=== PATIENT | female | born 1990 | race Caucasian/White ===

== ENCOUNTER 2023-07-09 05:04 | Day surgery (SDC) | payer OTHER, SELFPAY ==
[2023-07-09] VITALS (30 sets, daily range): BP systolic 87–127; BP diastolic 45–77; PULSE 49–98; RESP 14–19; TEMP 36.4–37.1; O2SAT 95–100; BMI 24.2
--- NOTE | 2023-07-09 05:22 | CRLHL7_ITS ---
For Patients: As a result of the Century Cures Act, medical imaging exams and procedure reports are released immediately into your electronic medical record. You may view this report before your referring provider. If you have questions, please contact your health care provider. INDICATION: Heavy vaginal bleeding, approximately 8 weeks , history of ectopic . TECHNIQUE: Ultrasound OB pelvis transvaginal. Real-time young-scale imaging of the pelvis was performed. COMPARISON: None. FINDINGS: Provided last menstrual period: May 2023 Normal uterine size and position. The endometrium measures 1 cm in double thickness. No endometrial fluid. No intrauterine gestational sac. There is a slightly heterogeneous hypoechoic round subserosal myometrial lesion at the fundus that measures 1.5 x 1.3 x 1.8 cm. Appearance is highly suggestive of a uterine fibroid. The left ovary measures 2.6 x 1.3 x 1.6 cm the right ovary measures 2.5 x 1.5 x 1.8 cm. No ovarian cyst or mass. No paraovarian cyst or mass. No pelvic free fluid. IMPRESSION: Small lesion at the uterine fundus appears most consistent with a leiomyoma. No findings of interstitial ectopic or other ectopic . No findings of intrauterine . Correlate with the patient`s beta HCG. Dictated by Rebecca Dooley MD @ 07/09/2023 7:34:56 AM (Electronically Signed)
[2023-07-09 05:31] LABS: Basophils Absolute Auto 0.03 K/uL (0.00-0.30); Basophils Percent Auto 0.3 % (0.0-3.0); Eosinophils Absolute Auto 0.12 K/uL (0.00-0.50); Eosinophils Percent Auto 1.4 % (0.0-7.0); Hematocrit 37.2 % (33.0-51.0); Hemoglobin* 12.5 gm/dL (12.0-16.0); Immature Granulocytes Abs Auto 0.01 K/uL (0.00-0.30); Immature Granulocytes Pct Auto 0.1 %; Lymphocytes Absolute Auto 2.63 K/uL (0.90-2.90); Mean Corpuscular HGB Conc 34 gm/dL (32-36); Mean Corpuscular Hemoglobin 29 pg (26-34); Mean Corpuscular Volume 85 fL (80-100); Monocytes Percent Auto 5.6 % (0.0-11.0); Neutrophils Absolute Auto 5.49 K/uL (1.7-7.0); Neutrophils Percent Auto 62.6 % (42.0-72.0); Platelet Count* 292 K/uL (140-440); RDW Coefficient of Variation % 12.1 % (11.5-15.5); Red Blood Count 4.37 m/uL (4.00-5.20); White Blood Count* 8.77 K/uL (4.50-11.00)
[2023-07-09 05:32] LABS: Slide Review Reflex No
--- NOTE | 2023-07-09 05:42 | ED.PREGNANCY ---
HPI - General Date Seen: 07/09/23 <Faustino Bob - Last Filed: 07/11/23 08:28> Chief complaint: Vaginal Bleeding <Faustino Bob - Last Filed: 07/11/23 08:28> Stated complaint: severe vaginal bleeding, 8 weeks <Faustino Bob - Last Filed: 07/11/23 08:28> Time Seen by Provider: 07/09/23 05:22 <Faustino Bob - Last Filed: 07/11/23 08:28> Source: patient <Faustino Bob - Last Filed: 07/11/23 08:28> Mode of arrival: ambulatory <Faustino Bob - Last Filed: 07/11/23 08:28> Limitations: no limitations <Faustino P Paulino Last Filed: 07/11/23 08:28> History of Present Illness HPI Narrative: Patient is a 33-year-old female A1 presenting to the emergency department for vaginal bleeding. She states she took a test that was positive based on the last menstrual. She is 8 weeks along. She is supposed to have her 1st ultrasound today. She noticed this morning at 02:30 she was having some mild bleeding. I he was guarding worsening she says since 04:30 she has had a large amount of bleeding and has gone through 3 pads. She does states she has had ectopic in the past. She denies lightheadedness or dizziness. Denies fevers, chills, headache, vision changes. She states last time with her ectopic all the bleeding was internal and she had a severe amount of abdominal pain. <Faustino Bob - Last Filed: 07/11/23 08:28> Related Data Home medications: Home Medications Medication Instructions Recorded Confirmed No Known Home Medications 12/19/22 12/19/22 <Faustino Bob - Last Filed: 07/11/23 08:28> Allergies/Adverse reactions: Allergies Allergy/AdvReac Type Severity Reaction Status Date / Time Sulfa (Sulfonamide Allergy Unknown Unknown Verified 12/19/22 08:46 Antibiotics) <Faustino Bob - Last Filed: 07/11/23 08:28> Review of Systems Status of ROS: Reports: 10 or more systems reviewed and unremarkable except as noted in History and below <Faustino Bob DO - Last Filed: 07/11/23 08:28> [facility] Medical History: Medical History History of hyperemesis gravidarum ?Z87.59 - Personal history of other complications of , childbirth and the puerperium (ICD-10) History of vaginal delivery (10/04/18) History of ectopic (11/2019) ?Z87.59 - Personal history of other complications of , childbirth and the puerperium (ICD-10) <Faustino Bob DO - Last Filed: 07/11/23 08:28> Surgical History: Surgical History History of laparoscopy (11/2019) ?Z98.890 - Other specified postprocedural states (ICD-10) <Faustino Bob DO - Last Filed: 07/11/23 08:28> Family History: Family History Mother Scoliosis Father High blood pressure <Faustino Bob DO - Last Filed: 07/11/23 08:28> Social History: Social History What is your current living situation?: I presently have a place to live Problems where you live: no known problems In the past 12 months, utilities in danger of being shut off: no In the past 12 mos, have been you worried that your food would run out before you had money to buy more?: never true In the past 12 mos, the food you bought just didn't last and you didn't have money to buy more?: never true Smoking Status: Never smoker How often do you have a drink containing alcohol: never AUDIT-C Alcohol total score: 0 Non-prescribed substance use: denies use How often does anyone, including family, friends and others, physically hurt you: How often does anyone, including family, friends and others, insult or talk down to you: How often does anyone, including family, friends and others, threaten you with harm: How often does anyone, including family, friends and others, scream or curse at you: Little interest or pleasure in doing things: not at all Feeling down, depressed, or hopeless: not at all <Faustino Bob DO - Last Filed: 07/11/23 08:28> Exam Narrative: Exam Narrative: Const: Well-nourished, Well-developed, in mild distress Eyes: PERRL, no conjunctival injection, and symmetrical lids HENT: Atraumatic external nose and ears. Moist mucous membranes. Neck: Symmetric, trachea midline, No thyromegaly. CVS: RRR, No murmurs or gallops. Peripheral pulses 2+ and equal in all extremities RESP: Unlabored respiratory effort. Clear to auscultation bilaterally. GI: Nontender/Nondistended, No rebound or guarding. : Pelvic exam done showing a large amount of blood in the vaginal vault. Unable to visualize cervix due to the bleeding. Large clot seen in the vaginal vault MSK:Extremities w/o deformity, Normal Active ROM Skin: Warm, Dry. No rashes or lesions. Neuro: Normal Muscle tone, No focal neurological deficits. Psych: Awake, Alert, & Oriented x3. Appropriate mood and affect. <Faustino Bob DO - Last Filed: 07/11/23 08:28> Const: Vital Signs, click to edit/add: Vital Signs - 24 hr 07/09/23 05:15 07/09/23 05:46 07/09/23 05:51 Temperature 98.3 F Pulse Rate 49 L Pulse Rate [Pulse Oximeter] 54 L Respiratory Rate 18 Blood Pressure Blood Pressure [Ri ght Upper Arm] 95/53 L 96/64 Pulse Oximetry 100 95 Oxygen Delivery Me thod Room Air Room Air 07/09/23 05:58 07/09/23 06:00 07/09/23 06:15 Temperature Pulse Rate 59 L 60 62 Pulse Rate [Pulse Oximeter] Respiratory Rate Blood Pressure 98/57 L Blood Pressure [Ri ght Upper Arm] Pulse Oximetry 100 97 99 Oxygen Delivery Me thod 07/09/23 06:30 07/09/23 06:38 07/09/23 06:45 Temperature Pulse Rate 56 L Pulse Rate [Pulse Oximeter] Respiratory Rate Blood Pressure 100/57 L 87/49 L Blood Pressure [Ri ght Upper Arm] Pulse Oximetry 97 Oxygen Delivery Me thod 07/09/23 07:10 07/09/23 07:16 07/09/23 07:23 Temperature Pulse Rate 59 L 61 Pulse Rate [Pulse Oximeter] Respiratory Rate 16 Blood Pressure 107/76 102/45 L Blood Pressure [Ri ght Upper Arm] Pulse Oximetry 100 100 Oxygen Delivery Me thod 07/09/23 07:30 07/09/23 08:06 07/09/23 08:08 Temperature Pulse Rate 63 67 69 Pulse Rate [Pulse Oximeter] Respiratory Rate 16 Blood Pressure 106/61 Blood Pressure [Ri ght Upper Arm] Pulse Oximetry 100 100 97 Oxygen Delivery Me thod 07/09/23 08:09 07/09/23 08:15 07/09/23 08:30 Temperature Pulse Rate 66 71 79 Pulse Rate [Pulse Oximeter] Respiratory Rate Blood Pressure Blood Pressure [Ri ght Upper Arm] Pulse Oximetry 100 100 99 Oxygen Delivery Me thod 07/09/23 08:31 Temperature Pulse Rate 87 Pulse Rate [Pulse Oximeter] Respiratory Rate 16 Blood Pressure 120/77 Blood Pressure [Ri ght Upper Arm] Pulse Oximetry 100 Oxygen Delivery Me thod <Faustino Bob, DO - Last Filed: 07/11/23 08:28> Vital Signs, click to edit/add: Vital Signs - 24 hr 07/09/23 05:15 07/09/23 05:46 07/09/23 05:51 Temperature 98.3 F Pulse Rate 49 L Pulse Rate [Pulse Oximeter] 54 L Respiratory Rate 18 Blood Pressure Blood Pressure [Ri ght Upper Arm] 95/53 L 96/64 Pulse Oximetry 100 95 Oxygen Delivery Me thod Room Air Room Air 07/09/23 05:58 07/09/23 06:00 07/09/23 06:15 Temperature Pulse Rate 59 L 60 62 Pulse Rate [Pulse Oximeter] Respiratory Rate Blood Pressure 98/57 L Blood Pressure [Ri ght Upper Arm] Pulse Oximetry 100 97 99 Oxygen Delivery Me thod 07/09/23 06:30 07/09/23 06:38 07/09/23 06:45 Temperature Pulse Rate 56 L Pulse Rate [Pulse Oximeter] Respiratory Rate Blood Pressure 100/57 L 87/49 L Blood Pressure [Ri ght Upper Arm] Pulse Oximetry 97 Oxygen Delivery Me thod 07/09/23 07:10 07/09/23 07:16 07/09/23 07:23 Temperature Pulse Rate 59 L 61 Pulse Rate [Pulse Oximeter] Respiratory Rate 16 Blood Pressure 107/76 102/45 L Blood Pressure [Ri ght Upper Arm] Pulse Oximetry 100 100 Oxygen Delivery Me thod 07/09/23 07:30 07/09/23 08:06 07/09/23 08:08 Temperature Pulse Rate 63 67 69 Pulse Rate [Pulse Oximeter] Respiratory Rate 16 Blood Pressure 106/61 Blood Pressure [Ri ght Upper Arm] Pulse Oximetry 100 100 97 Oxygen Delivery Me thod 07/09/23 08:09 07/09/23 08:15 07/09/23 08:30 Temperature Pulse Rate 66 71 79 Pulse Rate [Pulse Oximeter] Respiratory Rate Blood Pressure Blood Pressure [Ri ght Upper Arm] Pulse Oximetry 100 100 99 Oxygen Delivery Me thod 07/09/23 08:31 Temperature Pulse Rate 87 Pulse Rate [Pulse Oximeter] Respiratory Rate 16 Blood Pressure 120/77 Blood Pressure [Ri ght Upper Arm] Pulse Oximetry 100 Oxygen Delivery Me thod <Lynn Avalos MD - Last Filed: 07/09/23 09:09> Course Course ED Course: Patient was signed out to me by Dr. Bob, please see his note for full details. Repeat hemoglobin was stable, Ob did come to evaluate the patient and feels overall it would be best to take her to the operating room. . Hemodynamically she is improved, last blood pressure 120/77, pulse of 87. To OR with OB for D&C. <Lynn Avalos MD - Last Filed: 07/09/23 09:09> Vital Signs Vital signs: Initial Vital Signs Temperature 98.3 F 07/09/23 05:15 Temperature Source Temporal Artery Scan 07/09/23 05:15 Pulse Rate 54 L 07/09/23 05:15 Respiratory Rate 18 07/09/23 05:15 Blood Pressure 95/53 L 07/09/23 05:15 Blood Pressure Mean 67 L 07/09/23 05:15 Blood Pressure Position Supine 07/09/23 05:15 Oxygen Delivery Method Room Air 07/09/23 05:15 Vital Signs Temperature 98.3 F 07/09/23 05:15 Pulse Rate 54 L 07/09/23 05:15 Respiratory Rate 18 07/09/23 05:15 Blood Pressure 95/53 L 07/09/23 05:15 Oxygen Delivery Method Room Air 07/09/23 05:15 Temperature 98.5 F 07/09/23 09:59 Pulse Rate 65 07/09/23 10:45 Respiratory Rate 16 07/09/23 10:45 Blood Pressure 104/77 07/09/23 10:45 Pulse Oximetry 99 07/09/23 10:45 Oxygen Delivery Method Room Air 07/09/23 10:45 <Faustino Bob DO - Last Filed: 07/11/23 08:28> Initial Vital Signs Temperature 98.3 F 07/09/23 05:15 Temperature Source Temporal Artery Scan 07/09/23 05:15 Pulse Rate 54 L 07/09/23 05:15 Respiratory Rate 18 07/09/23 05:15 Blood Pressure 95/53 L 07/09/23 05:15 Blood Pressure Mean 67 L 07/09/23 05:15 Blood Pressure Position Supine 07/09/23 05:15 Oxygen Delivery Method Room Air 07/09/23 05:15 Vital Signs Temperature 98.3 F 07/09/23 05:15 Pulse Rate 54 L 07/09/23 05:15 Respiratory Rate 18 07/09/23 05:15 Blood Pressure 95/53 L 07/09/23 05:15 Oxygen Delivery Method Room Air 07/09/23 05:15 Temperature 98.5 F 07/09/23 09:59 Pulse Rate 65 07/09/23 10:45 Respiratory Rate 16 07/09/23 10:45 Blood Pressure 104/77 07/09/23 10:45 Pulse Oximetry 99 07/09/23 10:45 Oxygen Delivery Method Room Air 07/09/23 10:45 <Lynn Avalos MD - Last Filed: 07/09/23 09:09> Medications Administered Medications: Discontinued Medications Generic Name Dose Route Start Last Admin Trade Name Freq PRN Reason Stop Dose Admin Bupivacaine HCl 30 ml 07/09/23 09:28 07/09/23 09:11 Bupivacaine 0.25% 30 Ml INJECTION 07/09/23 09:29 10 ml ONCE ONE Administration Sodium Chloride 1,000 mls @ 1,000 mls/hr 07/09/23 07:15 07/09/23 07:38 0.9 % Sodium Chloride 1000 Ml IV 07/09/23 08:14 Infused .Q1H OLIVE Infusion Sodium Chloride 1,000 mls @ 1,000 mls/hr 07/09/23 07:45 07/09/23 08:14 0.9 % Sodium Chloride 1000 Ml IV 07/09/23 08:44 Infused .Q1H OLIVE Infusion Lactated Ringer's 1,000 mls @ 125 mls/hr 07/09/23 09:14 07/09/23 10:58 Lactated Ringers 500 Ml IV Infused .Q8H OLIVE Infusion Lidocaine HCl 20 ml 07/09/23 09:28 07/09/23 09:11 Lidocaine 1% Mdv INJECTION 07/09/23 09:29 10 ml ONCE ONE Administration <Faustino Bob DO - Last Filed: 07/11/23 08:28> Discontinued Medications Generic Name Dose Route Start Last Admin Trade Name Freq PRN Reason Stop Dose Admin Bupivacaine HCl 30 ml 07/09/23 09:28 07/09/23 09:11 Bupivacaine 0.25% 30 Ml INJECTION 07/09/23 09:29 10 ml ONCE ONE Administration Sodium Chloride 1,000 mls @ 1,000 mls/hr 07/09/23 07:15 07/09/23 07:38 0.9 % Sodium Chloride 1000 Ml IV 07/09/23 08:14 Infused .Q1H OLIVE Infusion Sodium Chloride 1,000 mls @ 1,000 mls/hr 07/09/23 07:45 07/09/23 08:14 0.9 % Sodium Chloride 1000 Ml IV 07/09/23 08:44 Infused .Q1H OLIVE Infusion Lactated Ringer's 1,000 mls @ 125 mls/hr 07/09/23 09:14 07/09/23 10:58 Lactated Ringers 500 Ml IV Infused .Q8H OLIVE Infusion Lidocaine HCl 20 ml 07/09/23 09:28 07/09/23 09:11 Lidocaine 1% Mdv INJECTION 07/09/23 09:29 10 ml ONCE ONE Administration <Lynn Avalos MD - Last Filed: 07/09/23 09:09> MDM - OB/Uterine Contractions MDM Narrative Medical decision making narrative: Patient is a 33-year-old female presenting for vaginal bleeding. Her blood pressure is relatively soft right now and she was given a L of fluids. I did do a pelvic exam but cannot get a clear view due to all the blood in the vault. At this point time concern for a miscarriage but more specifically and concern for an ectopic . Ultrasound was ordered to better evaluate this. She is not needing any pain medicine at this time. CBC, BMP, hCG quant, type and screen all ordered. Lab work returned showing no concerning findings. HCG quantitative was 5527. She is A positive. Ultrasound showed a large amount of blood again and patient does seem to be bleeding more. Preliminary read shows an internal fibroid and no signs of an into the ureter and or extra uterine . Patient has received 1 L fluid so far and was see by 2 L. of note while there were initially bringing her to ultrasound the patient has syncopal episode while sitting in a chair. Ultrasound was then done at bedside. I spoke to the on-call OB provider Dr. Peterson, who will come to evaluate her in the emergency department. Patient signed out to Dr. Avalos pending OB recommendations <Faustino Bob DO - Last Filed: 07/11/23 08:28> Lab Data Labs: Lab Results 07/09/23 07/09/23 Range/Units 05:25 08:10 WBC 8.77 12.23 H (4.50-11.00) K/uL RBC 4.37 4.60 (4.00-5.20) m/uL Hgb 12.5 13.1 (12.0-16.0) gm/dL Hct 37.2 39.9 (33.0-51.0) % MCV 85 87 (80-100) fL MCH 29 29 (26-34) pg MCHC 34 33 (32-36) gm/dL RDW Coeff of Arely 12.1 12.3 (11.5-15.5) % Plt Count 292 269 (140-440) K/uL Neut % (Auto) 62.6 81.7 H (42.0-72.0) % Lymph % (Auto) 30.0 13.7 L (20-44) % Bradford % (Auto) 5.6 3.8 (0.0-11.0) % Eos % (Auto) 1.4 0.5 (0.0-7.0) % Baso % (Auto) 0.3 0.1 (0.0-3.0) % Neut # (Auto) 5.49 10.00 H (1.7-7.0) K/uL Lymph # (Auto) 2.63 1.70 (0.90-2.90) K/uL Bradford # (Auto) 0.50 0.50 (0.00-0.90) K/UL Eos # (Auto) 0.12 0.10 (0.00-0.50) K/uL Baso # (Auto) 0.03 0.00 (0.00-0.30) K/uL Abs Immat Gran (auto) 0.01 0.00 (0.00-0.30) K/uL Imm/Tot Granulo (auto) 0.1 0.2 % Sodium 137 (135-149) mmol/L Potassium 3.4 L (3.6-5.1) mmol/L Chloride 106 (96-114) mmol/L Carbon Dioxide 21 (20-32) mmol/L Anion Gap 10 (7-15) mEq/L BUN 11 (5-24) mg/dL Creatinine 0.7 (0.5-1.5) mg/dL Estimated Creat Clear 106.01 Estimated GFR 116 ml/min Glucose 120 H (60-115) mg/dL Calcium 9.0 (8.4-10.6) mg/dL HCG, Quant 5527.00 mIU/mL Blood Type A Positive Antibody Screen NEGATIVE <Faustino Bob, DO - Last Filed: 07/11/23 08:28> Lab Results 07/09/23 07/09/23 Range/Units 05:25 08:10 WBC 8.77 12.23 H (4.50-11.00) K/uL RBC 4.37 4.60 (4.00-5.20) m/uL Hgb 12.5 13.1 (12.0-16.0) gm/dL Hct 37.2 39.9 (33.0-51.0) % MCV 85 87 (80-100) fL MCH 29 29 (26-34) pg MCHC 34 33 (32-36) gm/dL RDW Coeff of Arely 12.1 12.3 (11.5-15.5) % Plt Count 292 269 (140-440) K/uL Neut % (Auto) 62.6 81.7 H (42.0-72.0) % Lymph % (Auto) 30.0 13.7 L (20-44) % Bradford % (Auto) 5.6 3.8 (0.0-11.0) % Eos % (Auto) 1.4 0.5 (0.0-7.0) % Baso % (Auto) 0.3 0.1 (0.0-3.0) % Neut # (Auto) 5.49 10.00 H (1.7-7.0) K/uL Lymph # (Auto) 2.63 1.70 (0.90-2.90) K/uL Bradford # (Auto) 0.50 0.50 (0.00-0.90) K/UL Eos # (Auto) 0.12 0.10 (0.00-0.50) K/uL Baso # (Auto) 0.03 0.00 (0.00-0.30) K/uL Abs Immat Gran (auto) 0.01 0.00 (0.00-0.30) K/uL Imm/Tot Granulo (auto) 0.1 0.2 % Sodium 137 (135-149) mmol/L Potassium 3.4 L (3.6-5.1) mmol/L Chloride 106 (96-114) mmol/L Carbon Dioxide 21 (20-32) mmol/L Anion Gap 10 (7-15) mEq/L BUN 11 (5-24) mg/dL Creatinine 0.7 (0.5-1.5) mg/dL Estimated Creat Clear 106.01 Estimated GFR 116 ml/min Glucose 120 H (60-115) mg/dL Calcium 9.0 (8.4-10.6) mg/dL HCG, Quant 5527.00 mIU/mL Blood Type A Positive Antibody Screen NEGATIVE <Lynn Avalos MD - Last Filed: 07/09/23 09:09> Imaging Data Ob transvaginal ultrasound: Radiologist's impression: Small lesion at the uterine fundus appears most consistent with a leiomyoma. No findings of interstitial ectopic or other ectopic . No findings of intrauterine . Correlate with the patient`s beta HCG. Dictated by Rebecca Dooley MD @ 07/09/2023 7:34:56 AM <Faustino Bob DO - Last Filed: 07/11/23 08:28> Discharge Plan Discharge Clinical Impression: Incomplete , Vaginal bleeding <Faustino Bob DO - Last Filed: 07/11/23 08:28> Patient Disposition: XFER to OR <Faustino Bob DO - Last Filed: 07/11/23 08:28> Condition: Stable <Faustino Bob DO - Last Filed: 07/11/23 08:28>
[2023-07-09 05:43] LABS: Chloride* 106 mmol/L (96-114); Potassium* 3.4 mmol/L (3.6-5.1); Sodium* 137 mmol/L (135-149)
--- NOTE | 2023-07-09 05:43 | PC.NURSE ---
0282 avtar CARIAS for vaginal exam. Pt passed a large clot onto pad. All cares explained.
[2023-07-09 05:46] LABS: Anion Gap 10 mEq/L (7-15); Carbon Dioxide* 21 mmol/L (20-32); Creatinine* 0.7 mg/dL (0.5-1.5); Est. Creatinine Clearance* 106.01; Estimated Glomerular Filt Rate 116 ml/min
[2023-07-09 05:47] LABS: Blood Urea Nitrogen* 11 mg/dL (5-24); Glucose* 120 mg/dL (60-115)
--- NOTE | 2023-07-09 06:05 | PC.NURSE ---
Pt states her pain is better since she had the exam by . Currently wading for ultrasound. B/P better since vagel episode from IV start.
--- NOTE | 2023-07-09 06:17 | PC.NURSE ---
scant bleeding on pad. Pending ultrasound
[2023-07-09] MEDS: 0.9 % SODIUM CHLORIDE 1000 ml 1,000 ML IV ×2 (06:45→07:39)
--- NOTE | 2023-07-09 06:45 | PC.NURSE ---
Pt able to stand to get to w/c. In [place] by CT had a fainting event. Returned to ED bed. Vs as recorded and IVF open
--- NOTE | 2023-07-09 07:15 | PC.NURSE ---
Ultrasound complete with results
--- NOTE | 2023-07-09 07:29 | PC.NURSE ---
Patient had moderate amount of bleeding on pad. No clots seen. Patient stated pain is much better. Repeat hemoglobin check now.
--- NOTE | 2023-07-09 08:15 | PC.NURSE ---
Patient taken to the bathroom via wheelchair. Did not get dizzy or light headed. Passed a large sac. This was retrieved and placed in a specimen container. MD notified of this. Patient stated pain is much better at the moment.
[2023-07-09 08:16] LABS: Basophils Percent Auto 0.1 % (0.0-3.0); Eosinophils Percent Auto 0.5 % (0.0-7.0); Hematocrit 39.9 % (33.0-51.0); Hemoglobin* 13.1 gm/dL (12.0-16.0); Immature Granulocytes Pct Auto 0.2 %; Lymphocytes Percent Auto 13.7 % (20-44); Mean Corpuscular HGB Conc 33 gm/dL (32-36); Mean Corpuscular Hemoglobin 29 pg (26-34); Mean Corpuscular Volume 87 fL (80-100); Monocytes Percent Auto 3.8 % (0.0-11.0); Neutrophils Percent Auto 81.7 % (42.0-72.0); Platelet Count* 269 K/uL (140-440); RDW Coefficient of Variation % 12.3 % (11.5-15.5); White Blood Count* 12.23 K/uL (4.50-11.00)
[2023-07-09 08:20] LABS: Slide Review Reflex No
--- NOTE | 2023-07-09 08:40 | PM.GYNCN1 ---
[employer]EL[employer] - CN: HPI Data of Consult Time Seen by Provider: 08:10 Date Seen: 07/09/23 Patient: [facility] Patient Consult date: 07/09/23 Requesting Physician: Dr. Bob Primary Care Provider: Not a Local Provider Consult Narrative Reason for consult: vaginal bleeding Narrative: Miesha Castillo is a 33 year old female who presented to the ED at approximately 4:30 am with heavy vaginal bleeding and low abdominal cramping pain. She also complained of some pain radiating into the back. The bleeding had started at about 2:30 am. Upon arrival, she was found to have active heavy vaginal bleeding and passed out when she attempted to get up to use the bathroom. Initial hemoglobin in the ED was 12.5. On examination, the emergency room physician stated that there was a large amount of blood and clot within the vaginal vault made examination difficult. She did pass one clot, approximately golf ball-sized, that was placed into a specimen container. Ultrasound showed no evidence of intrauterine nor any findings suggestive of ectopic . Endometrium was noted to be thickened and irregular. The patient has a prior history of right salpingectomy for ectopic. She was to have had her first OB appointment today with ultrasound to confirm viability. She feels currently a little better, in that her back pain has resolved. She is still experiencing active vaginal bleeding. She denies lightheadedness wall reclining in the supine position in the bed. She last ate at about 5:00 a.m. this morning, ingesting two bites of a fruit and nut Radha bar. cc:: CC: Review of Systems Status of ROS: Reports: 10 or more systems reviewed and unremarkable except as noted in History and below Narrative: Blood type is documented to be A positive. [facility] Medical History History of hyperemesis gravidarum ?Z87.59 - Personal history of other complications of , childbirth and the puerperium (ICD-10) History of vaginal delivery (10/04/18) History of ectopic (11/2019) ?Z87.59 - Personal history of other complications of , childbirth and the puerperium (ICD-10) Surgical History History of laparoscopy (11/2019) ?Z98.890 - Other specified postprocedural states (ICD-10) Family History Mother Scoliosis Father High blood pressure Social History What is your current living situation?: I presently have a place to live Problems where you live: no known problems In the past 12 months, utilities in danger of being shut off: no In the past 12 mos, have been you worried that your food would run out before you had money to buy more?: never true In the past 12 mos, the food you bought just didn't last and you didn't have money to buy more?: never true Smoking Status: Never smoker How often do you have a drink containing alcohol: never AUDIT-C Alcohol total score: 0 Non-prescribed substance use: denies use How often does anyone, including family, friends and others, physically hurt you: How often does anyone, including family, friends and others, insult or talk down to you: How often does anyone, including family, friends and others, threaten you with harm: How often does anyone, including family, friends and others, scream or curse at you: Little interest or pleasure in doing things: not at all Feeling down, depressed, or hopeless: not at all Meds Home Medications and Allergies Home Medications Medication Instructions Recorded Confirmed Type No Known Home Medications 12/19/22 12/19/22 History Allergies Allergy/AdvReac Type Severity Reaction Status Date / Time Sulfa (Sulfonamide Allergy Unknown Unknown Verified 12/19/22 08:46 Antibiotics) [employer] - Exam Physical Exam: Vital signs: Temp Pulse Resp BP Pulse Ox O2 Del Method 98.3 F 79 16 106/61 99 Room Air 07/09/23 05:15 07/09/23 08:30 07/09/23 08:08 07/09/23 08:08 07/09/23 08:30 07/09/23 05:46 [employer] - Results Labs Labs: Short CBC 07/09/23 07/09/23 Range/Units 05:25 08:10 WBC 8.77 12.23 H (4.50-11.00) K/uL Hgb 12.5 13.1 (12.0-16.0) gm/dL Hct 37.2 39.9 (33.0-51.0) % Plt Count 292 269 (140-440) K/uL [facility] 07/09/23 05:25 Sodium 137 Potassium 3.4 L Chloride 106 Carbon Dioxide 21 BUN 11 Creatinine 0.7 Glucose 120 H Calcium 9.0 Imaging US - pelvis: Attestation: I have reviewed the pertinent imaging results. My impression: No evidence of intrauterine . Irregular thickened endometrial lining. Small leiomyoma. No findings consistent with ectopic . Radiologist's impression: Small lesion at the uterine fundus appears most consistent with a leiomyoma. No findings of interstitial ectopic or other ectopic . No findings of intrauterine . Correlate with the patient`s beta HCG. Assessment and Plan Assessment and plan (1) Vaginal bleeding: Status: Acute (2) Incomplete : Status: Acute Plan The situation was reviewed with the patient. There is no evidence of ectopic based on imaging, nor is there evidence of a viable intrauterine . The heavy vaginal bleeding is most consistent with spontaneous , with severity and duration of the bleeding is suggestive that all of the tissue has not yet passed. I would recommend proceeding with urgent suction curettage to remove any remaining products of conception, blood and clots from the uterus. The patient has had a small amount of food in the last few hours, so general anesthesia would be recommended to protect her airway from aspiration. Informed consent for suction curettage under general anesthesia was obtained. Risks include, but are not limited to, bleeding, infection, or injury to uterus or other organs. These risks are low. Because we cannot be absolutely certain that the was intrauterine, and because it is possible that the gestational sac has already passed with the bleeding and clots, the patient will need close follow-up with training of HCG levels postoperatively. We will send the clot that passed within the emergency department for pathologic review, and the tissue recovered from the uterus at the time of surgery will also be sent for pathologic review to look for products of conception. I would recommend that she see me for follow-up on Saturday in the [facility], with a quantitative HCG level to be drawn just prior to the appointment.
--- NOTE | 2023-07-09 08:54 | PC.NURSE ---
Patient taken to OR. All belongings brought to [facility]. Sac that was retrieved was sent down to lab. Report given to JASON Kuhn.
[2023-07-09] MEDS: BUPIVACAINE 0.25% 30 ML INJECTION (09:11)
[2023-07-09] MEDS: LIDOCAINE 1% MDV 20 ML INJECTION (09:11)
--- NOTE | 2023-07-09 09:31 | W.ANESCHARGE ---
Anesthesia Charges Start Date/Time Anesthesia Start Date: 07/09/23 Anesthesia Start Time: 08:55 Stop Date/Time Anesthesia Stop Date: 07/09/23 Anesthesia Stop Time: 09:30 Summary Emergency: [employer]
--- NOTE | 2023-07-09 09:54 | W.PM.GYNPROC ---
Procedure Note Date of procedure: 07/09/23 Pre-op diagnosis: 1. Heavy vaginal bleeding, acute, 2. Missed Post-op diagnosis: same Procedure: Suction curettage Anesthesia: GETA Complications: None. Surgeon: Wen Galvan MD Estimated blood loss (mL): 10 Pathology: specimen obtained, sent to pathology Condition: stable Disposition: same day Findings: Moderate amount of products of conception within the uterus. Procedure Description: After obtaining informed consent, the patient was taken to the operating room where general anesthesia was obtained without difficulty. She was prepared and draped in the normal, sterile fashion in the dorsal lithotomy position. An open-sided bivalve speculum was placed into the vagina and the cervix easily visualized. The anterior lip of the cervix was grasped with a single-tooth tenaculum for traction. A paracervical block was administered using a total of 20 mL of a 50:50 mixture of 1% lidocaine and 0.25% Marcaine, plain. A sound was gently inserted through the cervical os into the uterus to the level of the fundus. Sound length was 10 cm. The cervix was passively dilated using Hegar dilators to a # 10 dilator. A 10 mm rigid, curved suction cannula was advanced through the cervical os into the uterine cavity. Gentle suction was applied, and the uterine lining gently curetted. A moderate amount of products of conception and blood was removed. The suction cannula was removed. The uterine lining was gently explored using a sharp curette, and a gritty feel was felt throughout. One final pass was made with the suction cannula, no further tissue was recovered. All instruments were then removed. The patient tolerated the procedure well. Sponge, lap, and needle counts were reported as correct x2. The patient was taken to the recovery room awake and in stable condition.
== END 2023-07-09 11:00 | disposition home or self-care (01) ==
LOC: ED 08:56 → SS 08:58
PROVIDERS: Emergency Provider Student in an Organized Health Care Education/Training Program; Visit Provider Obstetrics & Gynecology
PROC: (CPT 59820; principal; 2023-07-09 08:45)
DX: O02.1 Missed abortion (principal); O08.1 Delayed or excessive hemorrhage following ectopic and molar pregnancy
CPT/HCPCS: 59820; 01965; 36415; 76817; 80048; 84702; 85025; 86850; 86900; 86901; 88305; 99140; 99283; 99285; J0330; J0665; J1100; J1630; J1885; J2250; J2405; J2704; J3010; J7030; J7120

== ENCOUNTER 2023-11-05 11:49 | Outpatient (CLI) | payer OTHER, SELFPAY ==
--- NOTE | 2023-11-05 12:15 | US_ITS ---
Patient: MANUELA PERLA Facility:?[facility] Patient ID:?[id number] Site Patient ID:?[id number]. Site :?[id number] Study:?US-OB Pelvis TV OB<14wks-11/05/2023 12:40:21 PM Ordering Physician:?Carol Figueroa Final Report: INDICATION: Check viability and dates TECHNIQUE: Transvaginal scanning was performed to optimally evaluate the IUP and adnexa. Ovarian blood flow was evaluated with color-flow and pulsed Doppler. COMPARISON: None FINDINGS: There is a living IUP with gestational age of 9 weeks 4 days by LMP and 10 weeks by today`s crown-rump length. EDC based on LMP is 06/05/2024 the embryonic heart rate is measured at 169 beats per minute. The placenta is not yet formed. There appears to be a 3.1 x 2.2 x 1.2 cm subchorionic hemorrhage. The ovaries are normal in size and shape. The right ovary measures 3.2 x 1.5 x 1.1 cm and the left 2.5 x 1.6 x 1.4 cm. Ovarian blood flow is demonstrated with color-flow and pulsed Doppler. No adnexal mass is noted. A trace of physiologic free fluid is noted in the cul-de-sac. IMPRESSION: 1. Living IUP with gestational age of 9 weeks 4 days by LMP and 10 weeks by today`s crown-rump length. EDC based on LMP is 06/05/2024. 2. Apparent 3.1 x 2.2 x 1.2 cm subchorionic hemorrhage. Dictated by Efra Gandhi MD @ 11/06/2023 9:40:44 AM Signed by:?Efra Gandhi MD @11/06/2023 9:40:44 AM (Electronic Signature)
== END 2023-11-05 11:50 | disposition home or self-care (01) ==
LOC: US 11:50
PROVIDERS: Visit Provider Advanced Practice Midwife
DX: Z34.91 Encounter for supervision of normal pregnancy, unspecified, first trimester (principal); Z3A.09 9 weeks gestation of pregnancy; O20.9 Hemorrhage in early pregnancy, unspecified
CPT/HCPCS: 76817

== ENCOUNTER 2023-11-07 11:13 | Outpatient (CLI) | payer OTHER, SELFPAY | END 2023-11-07 11:14 | disposition home or self-care (01) | LOC: NFLDREF 11-08 06:59 | PROVIDERS: Visit Provider Advanced Practice Midwife | DX: Z34.91 Encounter for supervision of normal pregnancy, unspecified, first trimester (principal); Z3A.09 9 weeks gestation of pregnancy | CPT/HCPCS: 86592; 86703; 86704; 86706; 86762; 86787; 86803; 86850; 86900; 86901; 87086; 87340 ==

== ENCOUNTER 2024-01-08 07:11 | Outpatient (CLI) | payer OTHER, SELFPAY ==
--- NOTE | 2024-01-08 07:15 | CRLHL7_ITS ---
For Patients: As a result of the Century Cures Act, medical imaging exams and procedure reports are released immediately into your electronic medical record. You may view this report before your referring provider. If you have questions, please contact your health care provider. INDICATION: Evaluate anatomy. COMPARISON: 11/05/2023 TECHNIQUE: Real time young scale imaging of the fetus was performed as well as color Doppler analysis of the umbilical vessels. FINDINGS: Sonographic imaging demonstrates a single living intrauterine gestation. Fetus demonstrates a regular cardiac rate of 161 beats per minute. Fetus has a variable position. The placenta lies anteriorly without evidence of placenta previa. Circumvallate inferior placental edge noted. Placenta is located 4.0 cm from the internal cervical os. Amniotic fluid volume appears normal. Single deepest vertical pocket: 3.2 cm. The cervix is closed and measures 3.4 cm in length. The composite ultrasound gestational age is calculated at 19 weeks 3 days with an estimated sonographic due date of 05/31/2024. The estimated weight is 301 grams which lies at the 91st %. The following biometric measurements were obtained: Biparietal diameter: 4.4 cm/19 weeks 3 day 78th% Head circumference: 16.6 cm/19 weeks 2 day 71st% Abdominal circumference: 14.2 cm/19 weeks 4 day 75th% Femur length: 3.1 cm/19 weeks 5 days 78th% The HC/AC ratio measures: 1.17 range (1.08-1.26) On anatomic survey, there is a normal appearance of the cerebral ventricles, cavum septi pellucidi, cisterna magna and cerebellum. The nose, lips, and facial profile appear normal. The cervical, thoracic and lumbar spine are well visualized and appear normal. There is a normal four-chamber heart view and the left and right ventricular outflow tracts appear normal. The diaphragm and stomach appear normal. The kidneys and bladder also appear normal. There is a normal three-vessel cord. Marginal placental cord insertion noted 9 millimeters from the placental edge. The four extremities appear normal. IMPRESSION: Concordance of clinical and sonographic dating. No intrinsic abnormalities noted on anatomic survey. Marginal placental cord insertion 9 millimeters from the placental edge. Circumvallate inferior placental margin suspected. No previa. Dictated by Arian Swanson MD @ 01/09/2024 6:16:20 AM (Electronically Signed)
== END 2024-01-08 07:12 | disposition home or self-care (01) ==
PROVIDERS: Visit Provider Physician Assistant
DX: Z34.92 Encounter for supervision of normal pregnancy, unspecified, second trimester (principal); Z3A.19 19 weeks gestation of pregnancy
CPT/HCPCS: 76805

== ENCOUNTER 2024-01-14 14:54 | Outpatient (CLI) | payer OTHER, SELFPAY | END 2024-01-14 14:55 | disposition home or self-care (01) | LOC: NFLDREF 01-17 02:55 | PROVIDERS: Visit Provider Advanced Practice Midwife | DX: O26.892 Other specified pregnancy related conditions, second trimester (principal); N89.8 Other specified noninflammatory disorders of vagina; R30.9 Painful micturition, unspecified; Z34.82 Encounter for supervision of other normal pregnancy, second trimester | CPT/HCPCS: 87086 ==

== ENCOUNTER 2024-03-11 09:35 | Outpatient (CLI) | payer OTHER, SELFPAY | END 2024-03-11 09:36 | disposition home or self-care (01) | LOC: NFLDREF 03-16 06:49 | PROVIDERS: Visit Provider Midwife | DX: Z34.83 Encounter for supervision of other normal pregnancy, third trimester (principal) | CPT/HCPCS: 86592 ==

== ENCOUNTER 2024-03-13 09:06 | Outpatient (CLI) | payer OTHER, SELFPAY ==
--- NOTE | 2024-03-13 09:15 | CRLHL7_ITS ---
For Patients: As a result of the Century Cures Act, medical imaging exams and procedure reports are released immediately into your electronic medical record. You may view this report before your referring provider. If you have questions, please contact your health care provider. INDICATION: Third trimester scan, evaluate growth. COMPARISON: 01/08/2024 TECHNIQUE: Real time young scale imaging of the fetus was performed. FINDINGS: Sonographic imaging demonstrates a single living intrauterine gestation. Fetus demonstrates a regular cardiac rate of 149 beats per minute. Fetus has a breech position. The placenta lies anteriorly. Amniotic fluid volume appears normal and there is a single deepest vertical pocket: 5.1 cm. The estimated weight is 1347gm which lies at the 81st %. On the prior OB ultrasound exam dated 01/08/2024 the estimated weight was at the 91st%. The biometric indices all lie within normal range. The HC/AC ratio measures 1.08 range (0.99-1.20). IMPRESSION: Sonographic gestational age 29 weeks 2 days and a sonographic due date 05/27/2024. Sonographic gestational age 9 days ahead of the clinical age. Estimated weight 81st percentile. Abdominal circumference 78th percentile. Dictated by Arian Swanson MD @ 03/13/2024 12:46:52 PM (Electronically Signed)
== END 2024-03-13 09:07 | disposition home or self-care (01) ==
LOC: US 09:07
PROVIDERS: Visit Provider Midwife
DX: Z34.93 Encounter for supervision of normal pregnancy, unspecified, third trimester (principal); Z3A.29 29 weeks gestation of pregnancy
CPT/HCPCS: 76816

== ENCOUNTER 2024-04-10 10:09 | Outpatient (CLI) | payer OTHER, SELFPAY ==
--- NOTE | 2024-04-10 10:15 | CRLHL7_ITS ---
For Patients: As a result of the Century Cures Act, medical imaging exams and procedure reports are released immediately into your electronic medical record. You may view this report before your referring provider. If you have questions, please contact your health care provider. INDICATION: circumvallate placenta, marginal cord insertion COMPARISON: 03/13/2024 TECHNIQUE: Real time young scale imaging of the fetus was performed. FINDINGS: Sonographic imaging demonstrates a single living intrauterine gestation. Fetus demonstrates a regular cardiac rate of 152 beats per minute. Fetus has a vertex position. The placenta lies anteriorly. Amniotic fluid volume appears normal and there is a single deepest vertical pocket: 4.5 cm. The estimated weight is 2132gm which lies at the 77th %. On the prior OB ultrasound exam dated 03/13/2024 the estimated weight was at the 81st%. BPD 93rd percentile. HC is 71st percentile. AC 86th percentile. FL 37th percentile. The HC/AC ratio measures 1.04 range (0.95-1.11). IMPRESSION: Sonographic gestational age 33 weeks 3 days and a sonographic due date 05/26/2024. Sonographic age 10 days ahead of the clinical age. Estimated weight 77th percentile. Abdominal circumference 86th percentile. Dictated by Arian Swanson MD @ 04/10/2024 10:49:07 AM (Electronically Signed)
== END 2024-04-10 10:10 | disposition home or self-care (01) ==
LOC: US 10:10
PROVIDERS: Visit Provider Midwife
DX: O43.113 Circumvallate placenta, third trimester (principal); O43.193 Other malformation of placenta, third trimester; Z3A.33 33 weeks gestation of pregnancy
CPT/HCPCS: 76816

== ENCOUNTER 2024-05-12 09:54 | Outpatient (CLI) | payer OTHER, SELFPAY ==
--- NOTE | 2024-05-12 10:15 | CRLHL7_ITS ---
For Patients: As a result of the Century Cures Act, medical imaging exams and procedure reports are released immediately into your electronic medical record. You may view this report before your referring provider. If you have questions, please contact your health care provider. INDICATION: Third trimester scan, evaluate growth. Circumvallate placenta and marginal cord insertion COMPARISON: 04/10/2024 TECHNIQUE: Real time young scale imaging of the fetus was performed. FINDINGS: Sonographic imaging demonstrates a single living intrauterine gestation. Fetus demonstrates a regular cardiac rate of 152 beats per minute. Fetus has a vertex position. The placenta lies anteriorly. Amniotic fluid volume appears normal and there is a single deepest vertical pocket: 7.2 cm. The estimated weight is 3485gm which lies at the 93rd %. On the prior OB ultrasound exam dated 04/10/2024 the estimated weight was at the 74th%. BPD 96th percentile. HC 88th percentile. AC greater than 97th percentile. FL 35th percentile. The HC/AC ratio measures 0.97 range (0.89-1.06). IMPRESSION: Sonographic gestational age 38 weeks 2 days and a sonographic due date 05/24/2024. Sonographic age 12 days ahead of the clinical age. Estimated weight 93rd percentile. Abdominal circumference greater than 97th percentile. Dictated by Arian Swanson MD @ 05/12/2024 11:34:48 AM (Electronically Signed)
== END 2024-05-12 09:55 | disposition home or self-care (01) ==
LOC: US 09:55
PROVIDERS: Visit Provider Midwife
DX: O43.113 Circumvallate placenta, third trimester (principal); Z3A.38 38 weeks gestation of pregnancy
CPT/HCPCS: 76816; 87081; 87653

== ENCOUNTER 2024-06-04 22:13 | Inpatient (IN) | payer OTHER, SELFPAY ==
[2024-06-04 22:23] VITALS: PULSE 58; O2SAT 98
[2024-06-04 22:24] VITALS: BP 126/80; PULSE 55
--- NOTE | 2024-06-04 22:52 | W.PM.LDBA ---
Subjective History of Present Illness Date Seen: 06/04/24 Narrative: Patient is being admitted to Labor and Delivery for active labor. She is a 33 year old at 39w5d gestation. Her full history and physical was dictated by Dr. Nathan Barr CNM on 05/20/24. Please see this for details. Specific Issues/Plans : [facility] Manuel H&P 05/20/24 by Edd Barr CNM #Marginal cord insertion. 9 mm from placental edge. Growth ultrasound every 4 weeks starting at 28 weeks -- 28wk: 32w: 77%, vertex 36wks: Estimated weight 93rd percentile. Abdominal circumference greater than 97th percentile. # circumvallate inferior placenta margin suspected. No previa. #AMA, turns 34 just after WERO -level II if desired -aspirin encouraged r/t BMI and AMA. No complications with preeclampsia in first , pt declines Needs PP pap DECLINES syphilis screen at 28w COVID: declined Flu: TDAP: 05/12 32wk Mental Health: 34wk Hgb: 05/12 OB - Problem Based A/P Additional Plan (1) : Status: Acute (2) Marginal insertion of umbilical cord: Status: Acute (3) Circumvallate placenta: Status: Acute (4) Pain during labor: Status: Acute Plan ASSESSMENT:?? 33 at 39 5/7 weeks gestation?? complicated by:??circumvallate placenta, marginal cord insertion, AMA, thin mec Labor type: Spontaneous, Active labor?? Category 1 FHR pattern.??? Labor complicated by: none?? GBS negative? ?? PLAN:?? 1. Routine intrapartum cares as ordered. Continue with expectant management?? 2. Monitoring per policy, intermittent?? 3. Planning unmedicated . Desires water . Consent signed. Hep C negative. Candidate for analgesia of choice.??? 4. Patient encouraged to reposition and ambulate to promote physiologic labor and .?? 5. Peds notified of thin mec and to attend delivery 6. Desires expectant management 7. Anticipate ? OB Result Labs Blood Type: A (+) positive Rubella: immune RPR/VDLR: nonreactive GBS Status: negative HBsAG: negative OB Exam Physical Exam Vital signs: Pulse BP Pulse Ox 55 L 126/80 98 12/05/24 22:24 06/04/24 22:24 06/04/24 22:23 Narrative: Exam limited due to quickly advancing dilation Vitals Reviewed Constitutional:? Alert and oriented x3 HEENT:? Normocephalic, atraumatic Abdomen:? Soft, nontender, and gravid. Vertex by Mane's, confirmed with cervical exam. Extremities:? No edema or erythema Cervix: 7 cm/90%/0 station/vertex NST: 115 bpm/moderate variability/accelerations present/decelerations absent/contractions regular and strong Grossly ruptured at 2225 thin mec noted
[2024-06-04 23:47] VITALS: BP 139/71; PULSE 80
[2024-06-05] VITALS (12 sets, daily range): BP systolic 113–138; BP diastolic 61–84; PULSE 54–99; RESP 16–18; TEMP 36.6–37.1; O2SAT 95–99
--- NOTE | 2024-06-05 00:01 | W.PM.OBVAGDE ---
OB Procedure Vag Delivery Mother Details Mother Details: The patient is a 33 year-old, 4, now Para 2021, admitted on 06/04/24 at 39 5/7 weeks gestation. Admission Date: 06/04/24 Additional Details Amniotic Membrane Status: SROM Amniotic Membrane Rupture Date: 06/04/24 Amniotic Membrane Rupture Time: 22:25 Amniotic Membrane Fluid Description: Meconium Stained Analgesia/Anesthesia Type: None Waterbirth: Yes Pitcoin: No Intrapartal Events: None Labor Onset: 20:40 Complete: 23:15 Pushin:09 Heart: heart tones during second stage were monitored intermittently. Delivery Details Delivery Date: 06/04/24 Delivery Time: 23:36 Route of delivery: Gender: Female Viability: Alive; Heart Rate Present Position at Delivery: OA Delivery Details: Patient was admitted for active labor and progressed quickly. SROM noted at 2225 with thin mec fluid. Patient was complete at 2315 and pushing at 2309. of a viable female at 2336 in hands and knees in the tub. Vertex delivered OA. Tight nuchal cord x1 delivered through without complication. Shoulders delivered easily. Body delivered easily and without incident. passed to mothers abdomen with a vigorous cry after some stimulation and bulb suctioning. Cord was clamped and cut at approx 5 minutes when signs of placental seperation were seen. APGARS were 8 at one minute and 9 at five minutes respectively. Intact placenta with a 3 vessel cord marginally inserted, delivered spontaneously at 2345. Fundus firm. 2nd degree identified. It was hemostatic so it was not repaired per patient preference. QBL 200 cc. Mother and baby stable; mother plans to breastfeed. Infant weight pending.? 1 Minute Interval Total Score: 8 5 Minute Interval Total Score: 9 Additional Details Shoulder Dystocia: No Placenta Delivery Time: 23:45 Placental Delivery Description: Spontaneous Procedure Done: Global Blood Loss: 200 Laceration: Perineal - 2nd Degree (Hemostatic, not repaired) Episiotomy Description: None Blood Loss Measurement Type: QBL Bakri Used: No Sponge/Need Count Correct: Yes Cord Vessel Description: 3 Vessels, Nuchal Cord (Tight, delivered through without complication), Tight and Delivered through Event Summary Status: Mother and infant were stable after delivery. Disposition: floor
[2024-06-05] MEDS: OXYTOCIN 10 UNIT/ML INJ IM (00:45)
[2024-06-05] MEDS: IBUPROFEN 600 MG TABLET PO ×3 (04:25→23:05)
[2024-06-05] MEDS: ACETAMINOPHEN 500 MG TABLET 1000 MG PO ×2 (07:54→19:06)
--- NOTE | 2024-06-05 11:15 | P.OBPN_ITS ---
OB - PN:Subj Subjective Date Seen: 06/05/24 Narrative: Miesha is a 33 y.o. who was admitted to L & D for labor.? She had an uncomplicated NVD.? ?? The patient feels well.? The pain is well controlled with current medications.? She has no new complaints.? She is breast feeding and reports things are going well.? the patient has done well.? Vitals have been stable.? She has remained afebrile.? Has a good appetite, is tolerating a general diet.? She is voiding without difficulty.? She is passing gas and has not had a bowel movement.? She is ambulating and denies any dizziness.? Has Small amount of rubra lochia.?She initially wanted to discharge this evening but after d iscussing with her partner they would like discharge tomorrow as soon as able. She declined her morning lab work of RPR and Hgb, bleeding has been stable. QBL 443 OB - PN: Obj Exam Physical Exam: Vital signs: Temp Pulse Resp BP Pulse Ox O2 Del Method 97.8 F 99 16 117/79 95 Room Air 06/05/24 09:00 06/05/24 09:00 06/05/24 09:00 06/05/24 09:00 06/05/24 09:00 06/05/24 09:00 Narrative: GENERAL APPEARANCE:? normal affect, alert, no distress? MOOD:? appropriate? HEENT: normocephalic, neck supple, full ROM? CHEST:? Symmetrical chest wall movement.? Normal respiratory effort.? Clear to auscultation ? HEART:? regular rate and rhythm? ABDOMEN:? soft, non-tender. Uterine fundus is firm, at Umbilicus, Midline and is appropriate for the stage of recovery.? Bowel sounds present.? PERINEUM:? mild edema of the perineum, there is a 2nd degree laceration that is healing well.? EXTREMITIES:? normal and no edema? OB - PN: A/P Delivery Assessment and Plan (1) care and examination of lactating mother: Status: Acute Plan day: 1 Plan: routine care Comments: G 4 P 2 status post uncomplicated NVD??? 1.? Continue route PP cares? 2.? .? May see if desired? 3.? Anticipate discharge home tomorrow?
[2024-06-06] VITALS: BP 120/82; PULSE 60; RESP 16; TEMP 36.7; O2SAT 97
[2024-06-06] MEDS: IBUPROFEN 600 MG TABLET PO (07:50)
[2024-06-06] MEDS: DOCUSATE SODIUM 100 MG CAPSULE PO (07:50)
[2024-06-06 08:00] VITALS: BP 118/78; PULSE 70; RESP 18; TEMP 36.8; O2SAT 97
--- NOTE | 2024-06-06 08:56 | PM.OBDSVD1 ---
DS: Providers Provider Date Seen: 06/06/24 Date of admission: 06/04/24 22:13 Primary care physician: Not a Local Provider Admitting Clinician: Annita Beavers CNM Attending Physician on discharge: Annita Beavers CNM Date of Discharge: 06/06/24 DS: Diagnosis Discharge Diagnosis (1) care and examination of lactating mother: Status: Acute Exam Narrative: Exam Narrative: GENERAL APPEARANCE:? normal affect, alert, no distress? MOOD:? appropriate? CHEST:? clear to auscultation and percussion? HEART:? regular rate and rhythm? ABDOMEN:? soft, non-tender the uterine fundus is U/1 and is appropriate for the stage of recovery.? PERINEUM:? mild edema of the perineum, there is a 2nd degree laceration that is healing well.? EXTREMITIES:? normal and no edema? Const: Vital Signs, click to edit/add: Vital Signs - 24 hr 06/05/24 09:00 06/05/24 13:43 06/05/24 19:30 Temperature 97.8 F 98.7 F 98.4 F Pulse Rate [Pulse Oximeter] 99 94 72 Respiratory Rate 16 16 18 Blood Pressure [Le ft Arm] 117/79 117/82 120/84 Pulse Oximetry 95 96 98 Oxygen Delivery Me thod Room Air Room Air Room Air Documenting provider has reviewed patient's vital signs: yes OB - DS: Summary Hospital Course Hospital Course: The patient is a 33 year old G 4 P 2 at 39.6 weeks gestation that was admitted to the Center on 06/04/24 for active labor. She had an uncomplicated vaginal delivery. She delivered a viable female infant. She is breast feeding and feels that it is going well overall but did struggle a little last night. It is better today. the patient has done well. Her pain is well controlled with current medications.? She has no new complaints.? Urinary output is adequate and she is voiding without difficulty.? Has a good appetite, is tolerating a general diet, is passing flatus, and has not had a bowel movement.? Has scant amount of rubra lochia.? She is ambulating well. She is planning NFP and condoms for contraception as she has has not tolerated other methods in the past. Peripartum Data delivery method: Vaginal Laceration description: Perineal - 2nd Degree (not repaired ) Episiotomy description: None complications: none [place] Infant Gender: Female Discharge Plan: Home Status at Discharge Functional status at discharge: independent ambulation Overall status at discharge: patient is progressing back to baseline Time Spent with Patient Time attestation: Total time spent providing and/or coordinating discharge services: Discharge Plan Discharge Disposition: Home, Self-Care Date of Admission: 06/04/24 22:13 Attending Provider on Discharge: Candida Barr Primary Care Provider: Provider,Not a Local Condition: Stable Anticipated Discharge Date/Time: 06/06/24 10:00 Discharge Medications: New docusate sodium 100 mg Capsule 100 mg PO DAILY Qty: 90 0RF Rx Instructions: Take 1-2 tables daily as needed for constipation. ibuprofen 600 mg Tablet 600 mg PO Q6H PRNQty: 60 0RF Continued magnesium oxide 250 mg magnesium tablet 250 mg PO QDAY Classic 28 mg iron- 800 mcg tablet 1 tab PO DAILY potassium 99 mg tablet 198 mg PO DAILY Discharge Orders: Discharge Order (Routine); Ordered 06/06/24 Ordered By: Candida Barr Patient Education: OB Vaginal/Breast Feeding Additional Instructions: Discharge instructions were reviewed with the patient including signs and symptoms of infection and home going medications.? Lifting Restrictions: 20 pounds for 6? weeks? ?? Do not drive while taking narcotic pain meds.? Off Work or School for 6 weeks.? ?? Symptoms to report to doctor:? -Bleeding that saturates more than one pad per hour? -Passing clots larger than the size of a golf ball? -Pain not relieved by prescribed medication? -Fever above 100.4 degrees Fahrenheit? -A foul vaginal odor? -Difficulty in emotions, mood and functions? -Thoughts of hurting yourself and/or ? -Painful, reddened area in your breast? -Any drainage, redness or tenderness in your IV/epidural site? -Severe headache that doesn't improve after taking medications? -Changes in vision, including temporary loss of vision, blurred vision, and/or light sensitivity? -Upper abdominal pain (usually under ribs on the right side)? -Decrease in urination or painful, frequent urinating? -Chest pain? -Shortness of breath? -Tenderness or pain with redness and/swelling in the calf(s) of your leg? ?? Follow Up in clinic in 2 and 6 weeks.? ?? consultation services are available to all mothers and babies for the first year after delivery.? To make an appointment, please call [phone].? Activity Level: Activity as Tolerated Discharge Diet: Regular Follow Up Appointments: [facility] [Provider Group] Provider,Not a Local [Primary Care Provider] - Forms: MyHealth Info Instructions
== END 2024-06-06 10:22 | disposition home or self-care (01) | DRG 807 ==
LOC: OB OUT 22:13 → OB 06-06 03:46
PROVIDERS: Admitting Provider Midwife; Visit Provider Midwife
DX: O43.193 Other malformation of placenta, third trimester (principal); Z37.0 Single live birth; O43.113 Circumvallate placenta, third trimester; O77.0 Labor and delivery complicated by meconium in amniotic fluid; O70.1 Second degree perineal laceration during delivery; Z3A.39 39 weeks gestation of pregnancy
CPT/HCPCS: 85018; 86592; G0463; A9270; J2590

== ENCOUNTER 2024-07-16 13:08 | Outpatient (CLI) | payer OTHER, SELFPAY ==
[2024-07-19 20:32] LABS: HPV Source Cervix; HPV, High Risk by TMA Not Detected
== END 2024-07-16 13:09 | disposition home or self-care (01) ==
PROVIDERS: Visit Provider Advanced Practice Midwife
DX: Z12.4 Encounter for screening for malignant neoplasm of cervix (principal); Z11.51 Encounter for screening for human papillomavirus (HPV)
CPT/HCPCS: 87624; 87625; 88141; 88142